=== PATIENT | male | born 1950 | race Caucasian/White ===

== ENCOUNTER → 2016-03-31 | Outpatient (CLI) | payer MEDICAID, OTHER ==
[~2016-03-31] MED LIST: AMIT24CA5 PO; ARIC10TA PO; ARTI99.0 OU; CLON-412 PO; FLOM5CAP PO; FOLI1TAB2 PO; GABA250S6 PO; METH10TA2 PO; NAME10TA PO; NEXI40CA PO; NORT50CA PO; OXYC-517 PO; SING10TA32 PO; ZOFR20TA PO
[2016-03-31 16:01] LABS: BASO % 0.5 % (0.0-1.0); EOS # 0.2 K/mm3 (0.0-0.50); EOS % 2.2 % (0.0-3.0); LARGE UNSTAINED CELL # 0.3 K/mm3 (0.0-0.4); LARGE UNSTAINED CELL % 3.7 % (0.0-4.0); LYMPH # 3.4 K/mm3 (1.5-4.5); MEAN CORPUSCULAR HEMOGLOBIN 32.4 pg (27.0-33.0); MEAN CORPUSCULAR HGB CONC 31.5 g/dl (32.0-36.5); MEAN CORPUSCULAR VOLUME 102.8 fl (80.0-96.0); MONO % 11.8 % (0.0-5.0); NEUTROPHILS # 3.5 K/mm3 (1.8-7.7); NEUTROPHILS % 41.7 % (36.0-66.0); PLATELET COUNT, AUTOMATED 190 k/mm3 (150-450); RED CELL DISTRIBUTION WIDTH 13.3 % (11.5-14.5); WHITE BLOOD COUNT 8.5 K/mm3 (4.0-10.0)
[2016-03-31 16:04] LABS: INR 1.23
[2016-03-31 16:08] LABS: ALBUMIN 3.7 GM/DL (3.2-5.2); ALBUMIN/GLOBULIN RATIO 0.88 (1.00-1.93); BILIRUBIN,TOTAL 0.8 MG/DL (0.2-1.0); CALCIUM LEVEL 9.5 MG/DL (8.8-10.2); CREATININE FOR GFR 1.6 MG/DL (0.70-1.30); GLOMERULAR FILTRATION RATE 46.4 (>49); PERCENT SATURATION 71.6 % (19.7-37.4); POTASSIUM SERUM 4.6 MEQ/L (3.5-5.1); TOTAL PROTEIN 7.9 GM/DL (6.4-8.2)
== END ==
LOC: M LAB 14:51
PROVIDERS: ATTEND Emergency Medicine
DX: D50.0 Iron deficiency anemia secondary to blood loss (chronic) (principal); N18.3 Chronic kidney disease, stage 3 (moderate); K70.30 Alcoholic cirrhosis of liver without ascites

== ENCOUNTER → 2016-05-31 | Outpatient (CLI) | payer OTHER ==
[2016-05-31 15:41] LABS: ALBUMIN 3.5 GM/DL (3.2-5.2); ALBUMIN/GLOBULIN RATIO 0.83 (1.00-1.93); BILIRUBIN,TOTAL 0.7 MG/DL (0.2-1.0); CALCIUM LEVEL 8.8 MG/DL (8.8-10.2); CREATININE FOR GFR 1.75 MG/DL (0.70-1.30); GLOMERULAR FILTRATION RATE 41.7 (>49); POTASSIUM SERUM 4.4 MEQ/L (3.5-5.1); TOTAL PROTEIN 7.7 GM/DL (6.4-8.2)
== END ==
LOC: M LAB 14:20
PROVIDERS: ATTEND Emergency Medicine
DX: N18.2 Chronic kidney disease, stage 2 (mild) (principal)

== ENCOUNTER → 2016-09-15 | Outpatient (CLI) | payer OTHER ==
[~2016-09-15] MED LIST changes: -AMIT24CA5 PO; +AMIT24CA7 PO; -ARIC10TA PO; +ARIC1TAB2 PO; -FOLI1TAB2 PO; +FOLI1TAB4 PO
== END ==
LOC: M LAB 11:30
PROVIDERS: ATTEND Internal Medicine Gastroenterology
DX: K70.30 Alcoholic cirrhosis of liver without ascites (principal)

== ENCOUNTER → 2016-09-15 | Outpatient (CLI) | payer OTHER ==
[2016-09-15 10:28] LABS: INR 1.12
[2016-09-15 10:39] LABS: BASO # 0.2 K/mm3 (0.0-0.2); BASO % 2.6 % (0.0-1.0); EOS # 0.4 K/mm3 (0.0-0.50); EOS % 4.8 % (0.0-3.0); LARGE UNSTAINED CELL # 0.1 K/mm3 (0.0-0.4); LARGE UNSTAINED CELL % 1.8 % (0.0-4.0); LYMPH # 2.5 K/mm3 (1.5-4.5); MEAN CORPUSCULAR HEMOGLOBIN 35.3 pg (27.0-33.0); MEAN CORPUSCULAR VOLUME 103.7 fl (80.0-96.0); MONO # 0.8 K/mm3 (0.0-0.8); MONO % 10.9 % (0.0-5.0); NEUTROPHILS # 3.4 K/mm3 (1.8-7.7); NEUTROPHILS % 45.9 % (36.0-66.0); PLATELET COUNT, AUTOMATED 192 k/mm3 (150-450); RED CELL DISTRIBUTION WIDTH 12.7 % (11.5-14.5); WHITE BLOOD COUNT 7.3 K/mm3 (4.0-10.0)
[2016-09-15 10:48] LABS: ALBUMIN 3.3 GM/DL (3.2-5.2); ALBUMIN/GLOBULIN RATIO 0.83 (1.00-1.93); BILIRUBIN,TOTAL 0.7 MG/DL (0.2-1.0); CALCIUM LEVEL 9.3 MG/DL (8.8-10.2); CREATININE FOR GFR 1.56 MG/DL (0.70-1.30); GLOMERULAR FILTRATION RATE 47.6 (>49); PERCENT SATURATION 37.5 % (19.7-37.4); POTASSIUM SERUM 4.5 MEQ/L (3.5-5.1); TOTAL PROTEIN 7.3 GM/DL (6.4-8.2)
== END ==
LOC: M LAB 09:35
PROVIDERS: ATTEND Emergency Medicine
DX: D50.0 Iron deficiency anemia secondary to blood loss (chronic) (principal); K70.30 Alcoholic cirrhosis of liver without ascites; N18.3 Chronic kidney disease, stage 3 (moderate); Z79.899 Other long term (current) drug therapy

== ENCOUNTER → 2016-09-20 | Outpatient (CLI) | payer OTHER ==
--- NOTE | 2016-09-21 03:35 | REP ---
Clinical: History of cirrhosis. Comparison: 12/11/2015. Technique: Castañeda scale ultrasound using curved array transducer. Findings: The liver and pancreas are normal in contour, size, and echogenicity without focal hepatic or pancreatic lesions identified. The gallbladder is normal without gallstones, wall thickening or pericholecystic fluid. No biliary ductal dilatation is appreciated, and the common bile duct is upper limits of normal and measures 8 mm diameter. The right kidney is normal in reniform shape without hydronephrosis and measures 8.9 x 4.0 x 3.7 cm. No ascites. Visualized portions of the abdominal aorta normal. Impression: Relatively normal appearance to the liver. No obvious right upper quadrant pathology by ultrasound. Signed by Duglas Harris MD 09/21/2016 03:27 A
== END ==
LOC: M RAD 08:55
PROVIDERS: ATTEND Internal Medicine Gastroenterology
DX: K70.30 Alcoholic cirrhosis of liver without ascites (principal)

== ENCOUNTER → 2017-02-07 | Outpatient (CLI) | payer OTHER ==
[~2017-02-07] MED LIST changes: +BIMA01SOL OU; +CORG20TA2 PO; +SPIR25TA2 PO; +XIFA550T PO
[2017-02-07 07:23] LABS: BASO # 0.1 10^3/uL (0.0-0.2); BASO % 0.9 % (0.0-1.0); EOS # 0.3 10^3/uL (0.0-0.50); EOS % 5.8 % (0.0-3.0); IMMATURE GRANULOCYTE % 0.3 % (0-0); LYMPH # 2.3 10^3/uL (1.5-4.5); LYMPH % 40.1 % (24.0-44.0); MEAN CORPUSCULAR HEMOGLOBIN 35.3 pg (27.0-33.0); MEAN CORPUSCULAR HGB CONC 34.1 g/dl (32.0-36.5); MEAN CORPUSCULAR VOLUME 103.4 fl (80.0-96.0); MONO # 0.8 10^3/uL (0.0-0.8); MONO % 12.9 % (0.0-5.0); NEUTROPHILS # 2.3 10^3/uL (1.8-7.7); PLATELET COUNT, AUTOMATED 123 10^3/uL (150-450); RED CELL DISTRIBUTION WIDTH 13.3 % (11.5-14.5); WHITE BLOOD COUNT 5.8 10^3/uL (4.0-10.0)
[2017-02-07 07:28] LABS: INR 1.17
[2017-02-07 07:48] LABS: ALBUMIN/GLOBULIN RATIO 0.65 (1.00-1.93); BILIRUBIN,TOTAL 1.1 MG/DL (0.2-1.0); CREATININE FOR GFR 1.29 MG/DL (0.70-1.30); GLOMERULAR FILTRATION RATE 59.3 (>49); PERCENT SATURATION 52.8 % (19.7-50.0); POTASSIUM SERUM 4.4 MEQ/L (3.5-5.1); TOTAL PROTEIN 7.6 GM/DL (6.4-8.2)
[2017-02-07 08:08] LABS: PLT CLUMPS? POS FLAG; POS COUNT POS FLAG
== END ==
LOC: M LAB 06:23
PROVIDERS: ATTEND Emergency Medicine
DX: D50.0 Iron deficiency anemia secondary to blood loss (chronic) (principal); K70.30 Alcoholic cirrhosis of liver without ascites; N18.3 Chronic kidney disease, stage 3 (moderate)

== ENCOUNTER 2017-02-08 17:30 | Emergency (ER) | payer OTHER ==
[~2017-02-08] VITALS: Ht 170.2 cm; Wt 79.5 kg
[~2017-02-08 17:30] MED LIST changes: -BIMA01SOL OU; -CORG20TA2 PO; -SPIR25TA2 PO; -XIFA550T PO
[2017-02-08] MEDS ORDERED: SPIR25TA2 PO (17:54)
[2017-02-08] MEDS ORDERED: XIFA550T PO (17:54)
[2017-02-08] MEDS ORDERED: BIMA01SOL OU (17:54)
[2017-02-08] MEDS ORDERED: CORG20TA2 PO (17:54)
[2017-02-08] MEDS: ACETAMINOPHEN 325 MG TAB PO ONE ×2 (18:15→18:46)
[2017-02-08 19:03] VITALS: BP 118/74
--- NOTE | 2017-02-08 19:20 | REPUSA ---
CT of the cervical spine Clinical history: Pain. Fall. Technique: Multiple axial CT images were obtained through the cervical spine without administration o f contrast. Coronal and sagittal 3-D reconstructed images were also obtained. Comparison: None. Findings: The cervical vertebral bodies are in satisfactory positioning and alignment. No fractures or dislocat ions are demonstrated. The odontoid process is intact. Intervertebral disc spaces are severely narrow ed at C5/C6 with a small disc osteophyte complex. There is moderate degenerative disc disease also no vincent at C6/C7 with small disc osteophyte complex. There is no evidence of facet subluxation. The neura l foramen appear grossly patent. The cervical cranial junction is intact. The cervical spinal canal d emonstrates normal caliber and contour without evidence of spinal stenosis. The surrounding soft tiss ues are within normal limits. Impression: 1. No acute fracture or traumatic injury. 2. Moderate to severe degenerative disc disease with disc osteophyte complexes at C5/C6 and C6/C7 as described.
--- NOTE | 2017-02-08 19:20 | REPUSA ---
CT of the head Clinical history: fall. Technique: Multiple axial CT images were obtained through the head without administration of contrast . Findings: The ventricles and sulci are symmetric bilaterally. There is no evidence of acute hemorrhag e or infarct. There is no midline shift, mass effect, or extra-axial fluid collection. The osseous st ructures are unremarkable. The visualized paranasal sinuses and mastoid air cells are clear. Impression: Negative study.
--- NOTE | 2017-02-09 21:14 | REP ---
RIGHT SHOULDER, COMPLETE: 02/08/2017. Clinical history: Trauma, patient fell. Shoulder pain. Comparison: AP chest 09/22/2015. Findings: AC joint shows no widening of the joint space or elevation of the clavicle. Minor degenerative changes. Clavicle without visible fracture. Glenohumeral joint shows some degenerative changes without subluxation or dislocation. No abnormal soft-tissue calcification. Scapula, humerus and ribs without visible or displaced fracture. Impression: 1. Some minor AC and glenohumeral joint degenerative change without visible or displaced fracture, avulsion, subluxation or focal bone lesion about the shoulder. No abnormal calcifications. Signed by Jaiden Ventura MD 02/11/2017 05:35 P
== END 2017-02-08 19:35 | disposition home or self-care (01) ==
LOC: M ED 17:30 → EDBD 17:30 → M ED 19:35
DX: S00.93XA Contusion of unspecified part of head, initial encounter (principal); S40.011A Contusion of right shoulder, initial encounter; W07.XXXA Fall from chair, initial encounter; Y92.009 Unspecified place in unspecified non-institutional (private) residence as the place of occurrence of the external cause; Y93.89 Activity, other specified; Y99.8 Other external cause status; Z91.041 Radiographic dye allergy status; Z88.2 Allergy status to sulfonamides

== ENCOUNTER → 2017-04-07 | Outpatient (CLI) | payer OTHER | LOC: M RAD 08:48 | DX: K74.60 Unspecified cirrhosis of liver (principal) | CPT/HCPCS: 76705 ==

== ENCOUNTER → 2017-04-19 | Outpatient (CLI) | payer OTHER ==
[2017-04-19 12:15] LABS: FOLATE 4.3 NG/ML; VITAMIN B12 LEVEL 789 PG/ML
== END ==
LOC: M LAB 11:09
DX: D51.9 Vitamin B12 deficiency anemia, unspecified (principal)
CPT/HCPCS: 82746

== ENCOUNTER → 2017-06-14 | Outpatient (CLI) | payer OTHER ==
[2017-06-14 15:24] LABS: HEMATOCRIT 30.2 % (42.0-52.0); MEAN CORPUSCULAR VOLUME 97.7 fl (80.0-96.0); RED BLOOD COUNT 3.09 10^6/uL (4.30-6.10); WHITE BLOOD COUNT 8.1 10^3/uL (4.0-10.0)
[2017-06-14 15:25] LABS: BASO # 0.1 10^3/uL (0.0-0.2); BASO % 0.7 % (0.0-1.0); EOS # 0.1 10^3/uL (0.0-0.50); EOS % 1.6 % (0.0-3.0); IMMATURE GRANULOCYTE % 0.1 % (0-3.0); LYMPH # 2.3 10^3/uL (1.5-4.5); LYMPH % 28.5 % (24.0-44.0); MEAN CORPUSCULAR HEMOGLOBIN 35.6 pg (27.0-33.0); MEAN CORPUSCULAR HGB CONC 36.4 g/dl (32.0-36.5); MONO # 1.2 10^3/uL (0.0-0.8); MONO % 14.4 % (0.0-5.0); NEUTROPHILS # 4.4 10^3/uL (1.8-7.7); NEUTROPHILS % 54.7 % (36.0-66.0); PLATELET COUNT, AUTOMATED 150 10^3/uL (150-450); RED CELL DISTRIBUTION WIDTH 16.2 % (11.5-14.5)
[2017-06-14 15:34] LABS: INR 1.43; PROTHROMBIN TIME 17.8 SECONDS (12.4-14.5)
[2017-06-14 15:35] LABS: PARTIAL THROMBOPLASTIN TIME 37.8 SECONDS (26.8-37.9)
[2017-06-14 16:03] LABS: ALPHA FETOPROTEIN TUMOR QUANT 5.5 NG/ML (<8.1)
[2017-06-14 16:09] LABS: ALBUMIN 3.1 GM/DL (3.2-5.2); ALBUMIN/GLOBULIN RATIO 0.65 (1.00-1.93); ALKALINE PHOSPHATASE 121 U/L (45-117); ALT/SGPT 103 U/L (12-78); ANION GAP 7 MEQ/L (8-16); AST/SGOT 304 U/L (7-37); BILIRUBIN,TOTAL 2.1 MG/DL (0.2-1.0); BLOOD UREA NITROGEN 18 MG/DL (7-18); CARBON DIOXIDE LEVEL 28 MEQ/L (21-32); CHLORIDE LEVEL 103 MEQ/L (98-107); CHOLESTEROL LEVEL 125 MG/DL (<200); CHOLESTEROL RISK RATIO 7.812 (<5); CREATININE FOR GFR 1.51 MG/DL (0.70-1.30); GLOMERULAR FILTRATION RATE 49.3 (>49); GLUCOSE, FASTING 112 MG/DL (70-100); HDL CHOLESTEROL 16 MG/DL (>40); IRON (FE) 133 UG/DL (65-175); NON-HDL-C 109 MG/DL; PERCENT SATURATION 73.1 % (19.7-50.0); POTASSIUM SERUM 4.5 MEQ/L (3.5-5.1); SODIUM LEVEL 138 MEQ/L (136-145); TOTAL IRON BINDING CAPACITY 182 UG/DL (250-450); TOTAL PROTEIN 7.9 GM/DL (6.4-8.2); TRIGLYCERIDES LEVEL 140 MG/DL (<150)
== END ==
LOC: M LAB 14:48
DX: N18.3 Chronic kidney disease, stage 3 (moderate) (principal); D50.0 Iron deficiency anemia secondary to blood loss (chronic); K70.30 Alcoholic cirrhosis of liver without ascites; Z79.899 Other long term (current) drug therapy
CPT/HCPCS: 83550

== ENCOUNTER → 2017-06-29 | Outpatient (CLI) | payer OTHER ==
[2017-06-29 16:07] LABS: BASO # 0.1 10^3/uL (0.0-0.2); BASO % 0.9 % (0.0-1.0); EOS # 0.2 10^3/uL (0.0-0.50); HEMATOCRIT 34.4 % (42.0-52.0); HEMOGLOBIN 12.4 g/dl (13.5-17.5); IMMATURE GRANULOCYTE % 0.1 % (0-3.0); LYMPH # 3.1 10^3/uL (1.5-4.5); MEAN CORPUSCULAR HEMOGLOBIN 35.9 pg (27.0-33.0); MEAN CORPUSCULAR VOLUME 99.7 fl (80.0-96.0); MONO # 1.1 10^3/uL (0.0-0.8); MONO % 14.3 % (0.0-5.0); NEUTROPHILS # 3.1 10^3/uL (1.8-7.7); NEUTROPHILS % 41.7 % (36.0-66.0); PLATELET COUNT, AUTOMATED 198 10^3/uL (150-450); RED BLOOD COUNT 3.45 10^6/uL (4.30-6.10); RED CELL DISTRIBUTION WIDTH 16.7 % (11.5-14.5); WHITE BLOOD COUNT 7.5 10^3/uL (4.0-10.0)
[2017-06-29 16:24] LABS: INR 1.39; PROTHROMBIN TIME 17.4 SECONDS (12.4-14.5)
[2017-06-29 16:25] LABS: PARTIAL THROMBOPLASTIN TIME 37.9 SECONDS (26.8-37.9)
== END ==
LOC: M LAB 15:39
DX: K70.30 Alcoholic cirrhosis of liver without ascites (principal)
CPT/HCPCS: 85610

== ENCOUNTER 2017-07-15 12:16 | Day surgery (SDC) | payer OTHER ==
[2017-07-15] MEDS: NS 1,000 ML IV (12:30)
[2017-07-15] MEDS ORDERED: LIDOCAINE 2% INJ 100 MG/5 ML SDV (FOR ANES.) As Ordered (14:01)
[2017-07-15] MEDS ORDERED: PROPOFOL 200 MG/20 ML VIAL As Ordered (14:01)
== END 2017-07-15 15:02 | disposition home or self-care (01) ==
LOC: M OPP 12:16
DX: R13.10 Dysphagia, unspecified (principal); K22.2 Esophageal obstruction; K74.60 Unspecified cirrhosis of liver; D64.9 Anemia, unspecified; R00.2 Palpitations; K21.9 Gastro-esophageal reflux disease without esophagitis; M19.90 Unspecified osteoarthritis, unspecified site; M25.50 Pain in unspecified joint; M54.30 Sciatica, unspecified side; F03.90 Unspecified dementia, unspecified severity, without behavioral disturbance, psychotic disturbance, mood disturbance, and anxiety; R21 Rash and other nonspecific skin eruption; F10.21 Alcohol dependence, in remission; Z91.041 Radiographic dye allergy status; Z88.2 Allergy status to sulfonamides; Z79.899 Other long term (current) drug therapy; Z80.1 Family history of malignant neoplasm of trachea, bronchus and lung
CPT/HCPCS: 43220

== ENCOUNTER → 2017-08-02 | Day surgery (SDC) | payer OTHER ==
[~2017-08-02] MED LIST changes: -AMIT24CA7 PO; -ARIC1TAB2 PO; -ARTI99.0 OU; -CLON-412 PO; -FLOM5CAP PO; -FOLI1TAB4 PO; -GABA250S6 PO; +LIDOCAINE 2% INJ 100 MG/5 ML SDV (FOR ANES.) As Ordered; -METH10TA2 PO; -NAME10TA PO; -NEXI40CA PO; -NORT50CA PO; -OXYC-517 PO; +PROPOFOL 200 MG/20 ML VIAL As Ordered; -SING10TA32 PO; -ZOFR20TA PO
[2017-08-02 12:33] LABS: HEMATOCRIT 31.9 % (42.0-52.0); HEMOGLOBIN 11.4 g/dl (13.5-17.5); MEAN CORPUSCULAR HEMOGLOBIN 35.5 pg (27.0-33.0); MEAN CORPUSCULAR HGB CONC 35.7 g/dl (32.0-36.5); MEAN CORPUSCULAR VOLUME 99.4 fl (80.0-96.0); RED BLOOD COUNT 3.21 10^6/uL (4.30-6.10); RED CELL DISTRIBUTION WIDTH 15.3 % (11.5-14.5); WHITE BLOOD COUNT 5.9 10^3/uL (4.0-10.0)
[2017-08-02 12:50] LABS: INR 1.51; PROTHROMBIN TIME 18.6 SECONDS (12.4-14.5)
[2017-08-02 12:59] LABS: PLATELET COUNT, AUTOMATED 96 10^3/uL (150-450)
[2017-08-02] MEDS: NS 1,000 ML IV (13:53)
== END | disposition home or self-care (01) ==
LOC: M OPP 12:02
DX: K22.2 Esophageal obstruction (principal); I86.4 Gastric varices; R13.10 Dysphagia, unspecified; K21.9 Gastro-esophageal reflux disease without esophagitis; M12.9 Arthropathy, unspecified; M54.30 Sciatica, unspecified side; D64.9 Anemia, unspecified; F03.90 Unspecified dementia, unspecified severity, without behavioral disturbance, psychotic disturbance, mood disturbance, and anxiety; K74.60 Unspecified cirrhosis of liver; Z79.891 Long term (current) use of opiate analgesic; Z79.899 Other long term (current) drug therapy; Z88.8 Allergy status to other drugs, medicaments and biological substances; Z91.041 Radiographic dye allergy status; Z86.59 Personal history of other mental and behavioral disorders; Z80.1 Family history of malignant neoplasm of trachea, bronchus and lung
CPT/HCPCS: 43249

== ENCOUNTER → 2017-09-16 | Outpatient (CLI) | payer OTHER ==
[2017-09-16 09:41] LABS: BASO # 0.1 10^3/uL (0.0-0.2); BASO % 0.9 % (0.0-1.0); EOS # 0.3 10^3/uL (0.0-0.50); HEMATOCRIT 32.4 % (42.0-52.0); HEMOGLOBIN 11.9 g/dl (13.5-17.5); IMMATURE GRANULOCYTE % 0.4 % (0-3.0); LYMPH # 3.3 10^3/uL (1.5-4.5); MEAN CORPUSCULAR HEMOGLOBIN 36.2 pg (27.0-33.0); MEAN CORPUSCULAR VOLUME 98.5 fl (80.0-96.0); MONO # 0.8 10^3/uL (0.0-0.8); MONO % 10.4 % (0.0-5.0); NEUTROPHILS % 40.3 % (36.0-66.0); PLATELET COUNT, AUTOMATED 118 10^3/uL (150-450); RED BLOOD COUNT 3.29 10^6/uL (4.30-6.10); RED CELL DISTRIBUTION WIDTH 16.4 % (11.5-14.5); WHITE BLOOD COUNT 7.5 10^3/uL (4.0-10.0)
[2017-09-16 09:45] LABS: MEAN CORPUSCULAR HGB CONC 36.7 g/dl (32.0-36.5)
[2017-09-16 09:51] LABS: INR 1.49; PROTHROMBIN TIME 18.2 SECONDS (12.1-14.4)
[2017-09-16 09:52] LABS: PARTIAL THROMBOPLASTIN TIME 36.5 SECONDS (25.4-37.6)
[2017-09-16 10:02] LABS: ALBUMIN 2.7 GM/DL (3.2-5.2); ALBUMIN/GLOBULIN RATIO 0.52 (1.00-1.93); ALKALINE PHOSPHATASE 89 U/L (45-117); ALT/SGPT 49 U/L (12-78); ANION GAP 8 MEQ/L (8-16); AST/SGOT 115 U/L (7-37); BILIRUBIN,TOTAL 2.3 MG/DL (0.2-1.0); BLOOD UREA NITROGEN 13 MG/DL (7-18); CALCIUM LEVEL 8.4 MG/DL (8.8-10.2); CARBON DIOXIDE LEVEL 28 MEQ/L (21-32); CHLORIDE LEVEL 107 MEQ/L (98-107); CHOLESTEROL LEVEL 124 MG/DL (<200); CHOLESTEROL RISK RATIO 6.526 (<5); CREATININE FOR GFR 1.56 MG/DL (0.70-1.30); GLOMERULAR FILTRATION RATE 47.5 (>49); GLUCOSE, FASTING 107 MG/DL (70-100); HDL CHOLESTEROL 19 MG/DL (>40); IRON (FE) 129 UG/DL (65-175); LDL CHOLESTEROL 77.8 MG/DL (<100); NON-HDL-C 105 MG/DL; PERCENT SATURATION 67.9 % (19.7-50.0); POTASSIUM SERUM 4.2 MEQ/L (3.5-5.1); SODIUM LEVEL 143 MEQ/L (136-145); TOTAL IRON BINDING CAPACITY 190 UG/DL (250-450); TOTAL PROTEIN 7.9 GM/DL (6.4-8.2); TRIGLYCERIDES LEVEL 136 MG/DL (<150)
[2017-09-16 10:10] LABS: ALPHA FETOPROTEIN TUMOR QUANT 5.7 NG/ML (<8.1)
== END ==
LOC: M LAB 09:09
DX: D50.0 Iron deficiency anemia secondary to blood loss (chronic) (principal); Z79.899 Other long term (current) drug therapy; N18.3 Chronic kidney disease, stage 3 (moderate); K70.30 Alcoholic cirrhosis of liver without ascites
CPT/HCPCS: 83550

== ENCOUNTER → 2017-09-28 | Outpatient (CLI) | payer OTHER ==
[2017-09-28 14:57] LABS: INR 1.44; PROTHROMBIN TIME 17.8 SECONDS (12.1-14.4)
[2017-09-28 15:09] LABS: ALBUMIN 2.7 GM/DL (3.2-5.2); ALBUMIN/GLOBULIN RATIO 0.55 (1.00-1.93); ALKALINE PHOSPHATASE 89 U/L (45-117); ALT/SGPT 61 U/L (12-78); AST/SGOT 164 U/L (7-37); BILIRUBIN,DIRECT 1.1 MG/DL (0.0-0.2); BILIRUBIN,TOTAL 2.1 MG/DL (0.2-1.0); GAMMA GLUTAMYLTRANSPEPTIDASE 364 U/L (15-85); TOTAL PROTEIN 7.6 GM/DL (6.4-8.2)
[2017-09-30 10:02] LABS: ALPHA FETOPROTEIN TUMOR QUANT 6.7 NG/ML (<8.1)
== END ==
LOC: M LAB 14:08
DX: K70.30 Alcoholic cirrhosis of liver without ascites (principal)
CPT/HCPCS: 82977

== ENCOUNTER → 2017-10-07 | Outpatient (CLI) | payer OTHER | LOC: M RAD 10:00 | DX: K70.30 Alcoholic cirrhosis of liver without ascites (principal) | CPT/HCPCS: 76705 ==

== ENCOUNTER → 2017-10-31 | Outpatient (CLI) | payer OTHER | LOC: M RAD 08:38 | DX: K86.89 Other specified diseases of pancreas (principal); R93.3 Abnormal findings on diagnostic imaging of other parts of digestive tract | CPT/HCPCS: 74181 ==

== ENCOUNTER 2017-12-31 22:56 | Emergency (ER) | payer OTHER ==
[2017-12-31 23:43] LABS: BASO # 0.1 10^3/uL (0.0-0.2); BASO % 0.6 % (0.0-1.0); EOS % 0.5 % (0.0-3.0); HEMATOCRIT 25.3 % (42.0-52.0); IMMATURE GRANULOCYTE % 0.3 % (0-3.0); LYMPH # 2.7 10^3/uL (1.5-4.5); LYMPH % 35.3 % (24.0-44.0); MEAN CORPUSCULAR HEMOGLOBIN 35.3 pg (27.0-33.0); MEAN CORPUSCULAR HGB CONC 35.6 g/dl (32.0-36.5); MEAN CORPUSCULAR VOLUME 99.2 fl (80.0-96.0); MONO # 0.7 10^3/uL (0.0-0.8); MONO % 9.4 % (0.0-5.0); NEUTROPHILS # 4.2 10^3/uL (1.8-7.7); NEUTROPHILS % 53.9 % (36.0-66.0); PLATELET COUNT, AUTOMATED 111 10^3/uL (150-450); RED BLOOD COUNT 2.55 10^6/uL (4.30-6.10); RED CELL DISTRIBUTION WIDTH 16.1 % (11.5-14.5); WHITE BLOOD COUNT 7.8 10^3/uL (4.0-10.0)
[2017-12-31] MEDS: PANTOPRAZOLE 40MG INJ (PROTONIX) (C9113) IV (23:47)
[2017-12-31] MEDS: NS 1,000 ML IV (23:47)
[2017-12-31 23:57] LABS: INR 1.69; PROTHROMBIN TIME 20.1 SECONDS (12.1-14.4)
[2018-01-01 00:08] LABS: ALBUMIN 2.4 GM/DL (3.2-5.2); ALBUMIN/GLOBULIN RATIO 0.56 (1.00-1.93); ALKALINE PHOSPHATASE 79 U/L (45-117); ALT/SGPT 66 U/L (12-78); ANION GAP 13 MEQ/L (8-16); AST/SGOT 142 U/L (7-37); BILIRUBIN,DIRECT 1.1 MG/DL (0.0-0.2); BILIRUBIN,TOTAL 1.8 MG/DL (0.2-1.0); BLOOD UREA NITROGEN 8 MG/DL (7-18); CALCIUM LEVEL 8.1 MG/DL (8.8-10.2); CARBON DIOXIDE LEVEL 23 MEQ/L (21-32); CHLORIDE LEVEL 104 MEQ/L (98-107); CREATININE FOR GFR 1.45 MG/DL (0.70-1.30); GLOMERULAR FILTRATION RATE 51.7 (>49); GLUCOSE, FASTING 107 MG/DL (70-100); LIPASE 1023 U/L (73-393); POTASSIUM SERUM 4.2 MEQ/L (3.5-5.1); SODIUM LEVEL 140 MEQ/L (136-145); TOTAL PROTEIN 6.7 GM/DL (6.4-8.2)
[2018-01-01] MEDS: NS 1,910 ML in APPROPRIATE DILUENT 1 EA IV (00:28)
[2018-01-01 00:45] LABS: ETHYL ALCOHOL (ETHANOL) 0.229 % (0.000-0.010)
[2018-01-01 00:57] LABS: AMMONIA 22 uMOL/L (<32)
[2018-01-01] MEDS: ONDANSETRON 4MG/2ML VIAL (J2405) IV (03:13)
== END 2018-01-01 04:06 | disposition short-term general hospital (02) ==
LOC: M ED 22:56
DX: K92.1 Melena (principal); I48.91 Unspecified atrial fibrillation; R55 Syncope and collapse
CPT/HCPCS: C9113

== ENCOUNTER → 2018-02-06 | Outpatient (CLI) | payer OTHER ==
[~2018-02-06] MED LIST changes: +AMIT24CA7 PO; +ARIC1TAB2 PO; +ARTI99.0 OU; +BIMA01SOL OU; +CLON-412 PO; +CORG20TA2 PO; +FLOM0.4C39 PO; +FOLI1TAB5 PO; +GABA250S6 PO; -LIDOCAINE 2% INJ 100 MG/5 ML SDV (FOR ANES.) As Ordered; +METH10TA2 PO; +NAME10TA PO; +NEXI40CA PO; +NORT50CA PO; +OXYC-517 PO; -PROPOFOL 200 MG/20 ML VIAL As Ordered; +SING10TA32 PO; +SPIR-10 PO; +SPIR50TA4 PO; +XIFA550T PO; +ZOFR4TAB16 PO
[2018-02-06 10:00] LABS: BASO # 0.1 10^3/uL (0.0-0.2); BASO % 0.7 % (0.0-1.0); EOS # 0.3 10^3/uL (0.0-0.50); EOS % 3.7 % (0.0-3.0); HEMATOCRIT 30.1 % (42.0-52.0); HEMOGLOBIN 10.9 g/dl (13.5-17.5); LYMPH # 2.7 10^3/uL (1.5-4.5); LYMPH % 39.4 % (24.0-44.0); MEAN CORPUSCULAR HEMOGLOBIN 34.2 pg (27.0-33.0); MEAN CORPUSCULAR HGB CONC 36.2 g/dl (32.0-36.5); MEAN CORPUSCULAR VOLUME 94.4 fl (80.0-96.0); MONO # 1.2 10^3/uL (0.0-0.8); MONO % 17.3 % (0.0-5.0); NEUTROPHILS # 2.6 10^3/uL (1.8-7.7); NEUTROPHILS % 38.8 % (36.0-66.0); PLATELET COUNT, AUTOMATED 159 10^3/uL (150-450); RED BLOOD COUNT 3.19 10^6/uL (4.30-6.10); WHITE BLOOD COUNT 6.8 10^3/uL (4.0-10.0)
[2018-02-06 11:22] LABS: ALBUMIN 2.5 GM/DL (3.2-5.2); BILIRUBIN,TOTAL 1.6 MG/DL (0.2-1.0); CALCIUM LEVEL 8.7 MG/DL (8.8-10.2); CREATININE FOR GFR 1.64 MG/DL (0.70-1.30); FOLATE 8.6 NG/ML; GLOMERULAR FILTRATION RATE 44.8 (>49); PERCENT SATURATION 56.9 % (19.7-50.0); POTASSIUM SERUM 4.9 MEQ/L (3.5-5.1); TOTAL PROTEIN 7.2 GM/DL (6.4-8.2)
== END ==
LOC: M LAB 09:04
PROVIDERS: ATTEND Physician Assistant
DX: I12.9 Hypertensive chronic kidney disease with stage 1 through stage 4 chronic kidney disease, or unspecified chronic kidney disease (principal); N18.3 Chronic kidney disease, stage 3 (moderate); K70.30 Alcoholic cirrhosis of liver without ascites; D50.0 Iron deficiency anemia secondary to blood loss (chronic)

== ENCOUNTER → 2018-03-15 | Outpatient (CLI) | payer MEDICARE, OTHER ==
[~2018-03-15] MED LIST changes: +FOLI1TAB11 PO; -FOLI1TAB5 PO
[2018-03-15 13:14] LABS: BASO # 0.1 10^3/uL (0.0-0.2); BASO % 1.1 % (0.0-1.0); EOS # 0.2 10^3/uL (0.0-0.50); EOS % 3.8 % (0.0-3.0); HEMOGLOBIN 11.4 g/dl (13.5-17.5); LYMPH # 2.5 10^3/uL (1.5-4.5); LYMPH % 46.1 % (24.0-44.0); MEAN CORPUSCULAR HEMOGLOBIN 33.7 pg (27.0-33.0); MEAN CORPUSCULAR HGB CONC 34.5 g/dl (32.0-36.5); MEAN CORPUSCULAR VOLUME 97.6 fl (80.0-96.0); MONO # 1.2 10^3/uL (0.0-0.8); MONO % 21.1 % (0.0-5.0); NEUTROPHILS # 1.5 10^3/uL (1.8-7.7); NEUTROPHILS % 27.7 % (36.0-66.0); PLATELET COUNT, AUTOMATED 165 10^3/uL (150-450); RED BLOOD COUNT 3.38 10^6/uL (4.30-6.10); WHITE BLOOD COUNT 5.5 10^3/uL (4.0-10.0)
[2018-03-15 13:49] LABS: ALBUMIN 2.8 GM/DL (3.2-5.2); BILIRUBIN,TOTAL 1.1 MG/DL (0.2-1.0); CALCIUM LEVEL 8.9 MG/DL (8.8-10.2); CREATININE FOR GFR 1.75 MG/DL (0.70-1.30); GLOMERULAR FILTRATION RATE 41.6 (>49); PERCENT SATURATION 23.2 % (19.7-50.0); TOTAL PROTEIN 7.6 GM/DL (6.4-8.2)
[2018-03-15 14:41] LABS: FOLATE 8.7 NG/ML (>5.4)
== END ==
LOC: M LAB 12:33
PROVIDERS: ATTEND Physician Assistant
DX: N18.3 Chronic kidney disease, stage 3 (moderate) (principal)

== ENCOUNTER → 2018-04-04 | Outpatient (CLI) | payer MEDICARE ==
[2018-04-04 15:49] LABS: BASO # 0.1 10^3/uL (0.0-0.2); BASO % 0.7 % (0.0-1.0); EOS # 0.2 10^3/uL (0.0-0.50); EOS % 3.6 % (0.0-3.0); HEMATOCRIT 31.8 % (42.0-52.0); HEMOGLOBIN 10.8 g/dl (13.5-17.5); LYMPH # 3.3 10^3/uL (1.5-4.5); LYMPH % 49.1 % (24.0-44.0); MEAN CORPUSCULAR HEMOGLOBIN 33.1 pg (27.0-33.0); MEAN CORPUSCULAR VOLUME 97.5 fl (80.0-96.0); MONO # 1.1 10^3/uL (0.0-0.8); MONO % 16.6 % (0.0-5.0); NEUTROPHILS % 29.9 % (36.0-66.0); PLATELET COUNT, AUTOMATED 128 10^3/uL (150-450); RED BLOOD COUNT 3.26 10^6/uL (4.30-6.10); WHITE BLOOD COUNT 6.7 10^3/uL (4.0-10.0)
[2018-04-04 16:13] LABS: ALBUMIN 2.8 GM/DL (3.2-5.2); BILIRUBIN,DIRECT 0.5 MG/DL (0.0-0.2); BILIRUBIN,TOTAL 0.9 MG/DL (0.2-1.0); CREATININE FOR GFR 1.72 MG/DL (0.70-1.30); GLOMERULAR FILTRATION RATE 42.4 (>49); TOTAL PROTEIN 7.1 GM/DL (6.4-8.2)
[2018-04-04 16:15] LABS: INR 1.37; PROTHROMBIN TIME 17.1 SECONDS (12.1-14.4)
[2018-04-04 16:45] LABS: CA19-9 TUMOR MARKER,CARBOHYDRA 55.2 U/ML (<35.0)
== END ==
LOC: M LAB 15:12
PROVIDERS: ATTEND Internal Medicine Gastroenterology
DX: K70.30 Alcoholic cirrhosis of liver without ascites (principal)

== ENCOUNTER → 2018-04-12 | Outpatient (CLI) | payer MEDICARE ==
--- NOTE | 2018-04-17 12:37 | REP ---
Clinical: Urinary frequency. Technique: Real time welch scale ultrasound examination using curved array transducer. Findings: The kidneys appear mildly atrophic but otherwise normal in reniform shape and echogenicity without hydronephrosis, nephrolithiasis, cystic or renal mass lesion. No perinephric fluid collection. Right kidney measures 8.6 x 4.7 x 4.0 cm. Left kidney measures 7.1 x 4.4 x 3.4 cm. Bladder is grossly unremarkable and bilateral ureteral jets are identified. Prevoid bladder measures 8.4 x 7.3 x 4.8 cm (192 ml). Postvoid bladder measures 1.9 x 2.1 x 1.9 cm (5 ml). Postvoid residual equals 3%. Prostate gland is heterogeneous and measures 4.5 x 2.3 x 3.0 cm (16 ml). Impression: 1. Atrophic appearance of the kidneys otherwise unremarkable. Electronically Signed by Duglas Harris MD 04/17/2018 12:29 P
== END ==
LOC: M RAD 12:29
PROVIDERS: ATTEND Internal Medicine Nephrology
DX: N18.3 Chronic kidney disease, stage 3 (moderate) (principal); R35.0 Frequency of micturition; N26.1 Atrophy of kidney (terminal)

== ENCOUNTER → 2018-04-21 | Outpatient (CLI) | payer MEDICARE ==
--- NOTE | 2018-04-21 14:45 | REP ---
MRI ABDOMEN AND PANCREAS WITHOUT INTRAVENOUS CONTRAST: HISTORY: Pancreatic lesion. Elevated CA19-9. Comparison is made with noncontrast CT study December 31, 2017 as well as ultrasound October 07, 2017 and prior MRI study October 31, 2017. MRI TECHNIQUE: Noncontrast study is performed as requested. Axial and coronal T1- and T2-weighted sequences include spin echo, gradient echo, in- and [id number] sequences. MRI FINDINGS: There is motion artifact on several of the sequences. Visualization is somewhat less than optimal. Multiple low signal intensity foci are again seen in the pancreatic head consistent with calcifications noted distributed in the pancreas on CT study. These calcifications are better visualized on CT than MRI. No pancreatic mass lesion is appreciated. Pancreatic duct is somewhat dilated measuring 5-6 mm in diameter today. This has increased from the prior MRI study. The intrahepatic bile ducts are not dilated. The common bile duct measures 0.7 cm, which is the upper range of normal. No mass or stone is seen in the common duct. No filling defect is noted in the gallbladder. There is a small quantity of fluid anteriorly adjacent to the liver less so than previously. No focal hepatic or splenic lesion is appreciated. There is mild diffuse fatty infiltration. IMPRESSION: Multifocal pancreatic calcifications consistent with chronic pancreatitis changes. Interval development of moderate pancreatic ductal dilation in the body and tail of the pancreas. No pancreatic mass lesion is visible on this noncontrast study. Fatty infiltration of the liver is again noted. Normal perihepatic fluid. Electronically Signed by Robert Vance MD 04/21/2018 03:52 P
== END ==
LOC: M RAD 10:27
PROVIDERS: ATTEND Internal Medicine Gastroenterology
DX: C25.3 Malignant neoplasm of pancreatic duct (principal); K86.9 Disease of pancreas, unspecified; K76.0 Fatty (change of) liver, not elsewhere classified

== ENCOUNTER → 2018-05-09 | Outpatient (CLI) | payer MEDICARE, MEDICAID ==
[2018-05-09 16:05] LABS: ALBUMIN 3.4 GM/DL (3.2-5.2); BILIRUBIN,DIRECT 0.5 MG/DL (0.0-0.2); BILIRUBIN,TOTAL 1.2 MG/DL (0.2-1.0); TOTAL PROTEIN 8.2 GM/DL (6.4-8.2)
[2018-05-09 16:42] LABS: CA19-9 TUMOR MARKER,CARBOHYDRA 58.4 U/ML (<35.0)
== END ==
LOC: M LAB 14:21
PROVIDERS: ATTEND Internal Medicine Gastroenterology
DX: K70.30 Alcoholic cirrhosis of liver without ascites (principal)

== ENCOUNTER → 2018-07-26 | Outpatient (CLI) | payer MEDICARE, MEDICAID ==
--- NOTE | 2018-07-26 17:33 | REP ---
RENAL NUCLEAR SCAN WITH FLOW AND FUNCTION: Following the intravenous administration of 8.6 millicuries of Technetium 99M mag 3, immediate flow images are obtained. In the posterior projection showing symmetrical blood flow bilaterally. Delayed renal function images are performed in the posterior projection every minute for a period of 30 minutes. There is no definite cortical defect bilaterally. There is a fairly symmetrical excretion and cortical washout. There is mild bilateral pelvocaliectasis without over hydronephrosis. Split function is 42.1% on the left and 57.9% on the right. Time to peak is 3 minutes bilaterally. T-one half is mildly elevated bilaterally, 18.9 minutes on the left and 25.1 minutes on the right. Renal function curves are moderately shallow in their downward slopes. There is mild postvoid residual in the urinary bladder after voiding. IMPRESSION: Mildly to moderately compromised renal function bilaterally with a greater degree of splint function on the right compared to the left. No evidence of urinary tract obstruction. Electronically Signed by Mannie Castañeda MD 07/31/2018 08:25 A
== END ==
LOC: M RAD 13:21
PROVIDERS: ATTEND Internal Medicine Nephrology
DX: N27.1 Small kidney, bilateral (principal); N18.3 Chronic kidney disease, stage 3 (moderate)
CPT/HCPCS: 78707; A9562

== ENCOUNTER → 2018-08-15 | Outpatient (CLI) | payer MEDICARE, MEDICAID ==
[2018-08-15 08:50] LABS: BASO # 0.1 10^3/uL (0.0-0.2); BASO % 1.1 % (0.0-1.0); EOS # 0.3 10^3/uL (0.0-0.50); HEMATOCRIT 33.9 % (42.0-52.0); HEMOGLOBIN 12.1 g/dl (13.5-17.5); LYMPH % 56.6 % (24.0-44.0); MEAN CORPUSCULAR HGB CONC 35.7 g/dl (32.0-36.5); MEAN CORPUSCULAR VOLUME 95.2 fl (80.0-96.0); MONO # 0.7 10^3/uL (0.0-0.8); NEUTROPHILS # 1.2 10^3/uL (1.8-7.7); NEUTROPHILS % 23.1 % (36.0-66.0); PLATELET COUNT, AUTOMATED 113 10^3/uL (150-450); RED BLOOD COUNT 3.56 10^6/uL (4.30-6.10); WHITE BLOOD COUNT 5.4 10^3/uL (4.0-10.0)
[2018-08-15 09:11] LABS: INR 1.27; PROTHROMBIN TIME 15.6 SECONDS (11.8-14.0)
[2018-08-15 09:13] LABS: ALBUMIN 3.1 GM/DL (3.2-5.2); BILIRUBIN,DIRECT 0.5 MG/DL (0.0-0.2); CALCIUM LEVEL 8.6 MG/DL (8.8-10.2); CREATININE FOR GFR 1.66 MG/DL (0.70-1.30); GLOMERULAR FILTRATION RATE 44.1 (>49); POTASSIUM SERUM 4.1 MEQ/L (3.5-5.1); TOTAL PROTEIN 7.6 GM/DL (6.4-8.2)
[2018-08-15 09:50] LABS: CA19-9 TUMOR MARKER,CARBOHYDRA 55.3 U/ML (<35.0)
--- NOTE | 2018-08-15 10:08 | REP ---
Clinical: History of alcoholic cirrhosis. Technique: Real time welch scale ultrasound examination using curved array transducer. Findings: The liver demonstrates mildly coarsened echotexture without focal hepatic lesion identified suggesting hepatocellular disease. Evaluation the pancreas demonstrates parenchymal and possibly intraductal calcifications along with ductal dilatation to 4.9 mm, and findings may reflect chronic pancreatitis. No focal pancreatic lesion is otherwise identified. Gallbladder demonstrates small mobile gallstones without wall thickening or pericholecystic fluid. No sonographic Vidales's sign. Common bile duct is dilated to 8.6 mm and small choledocholiths cannot be excluded. The right kidney is normal in reniform shape without hydronephrosis and measures 9.7 x 4.2 x 3.5 cm. No ascites in the visualized right upper quadrant. Impression: 1. Liver demonstrates changes related to hepatocellular disease without focal hepatic lesion. 2. Cholelithiasis and possible choledocholithiasis along with moderately dilated common bile duct 8.6 mm. 3. Pancreatic ductal dilatation along with pancreatic calcifications raising the possibility of prior chronic pancreatitis. Electronically Signed by Duglas Harris MD 08/15/2018 10:01 A
== END ==
LOC: M RAD 08:05
PROVIDERS: ATTEND Internal Medicine Gastroenterology
DX: K70.30 Alcoholic cirrhosis of liver without ascites (principal)

== ENCOUNTER → 2018-09-25 | Outpatient (CLI) | payer MEDICARE, MEDICAID ==
--- NOTE | 2018-09-25 11:38 | REP ---
MRCP: MRCP is accomplished utilizing multiple heavy T2-weighted sequences in the axial and coronal planes. MIP reconstruction images are performed. Comparison is made with prior MRI 04/21/2018 and 10/31/2017. There is slight progressive dilatation of the biliary system. There is mild intrahepatic biliary dilatation. The common hepatic duct is dilated up to 12 mm and the common bile duct is dilated up to 10 mm. There is no evidence of choledocholithiasis and no definite structure is seen, although a stricture at the ampulla of Vater cannot be totally be excluded. There is dilatation of the pancreatic duct diffusely, with a maximum diameter of 5-6 mm in the body and tail of the pancreas. Multiple pancreatic calcifications are again noted. A small intraductal calcification is seen in the body of the pancreas measuring about 4 mm in diameter. Multiple pancreatic head calcifications are seen. There is mild dilatation of multiple ductal side branches. Please note this study is somewhat limited due to breathing motion on several sequences. There appear to be small filling defects in the gallbladder compatible with small stones. No free fluid is seen in the visualized abdomen. There appears to be some degree of heterogeneous fatty infiltration of the liver. There are no other acute findings. IMPRESSION: Mild progressive diffuse biliary dilatation and pancreatic duct dilatation as discussed above. No evidence of choledocholithiasis. Multiple pancreatic calcifications again noted. Stricture at the ampulla of Vater cannot be totally excluded. Multiple small gallstones in the gallbladder. Electronically Signed by Mannie Castañeda MD 09/27/2018 07:44 A
== END ==
LOC: M RAD 08:59
PROVIDERS: ATTEND Internal Medicine Gastroenterology
DX: R93.3 Abnormal findings on diagnostic imaging of other parts of digestive tract (principal); K80.20 Calculus of gallbladder without cholecystitis without obstruction; K86.89 Other specified diseases of pancreas

== ENCOUNTER 2018-10-19 11:32 | Emergency (ER) | payer MEDICARE, MEDICAID ==
[~2018-10-19] VITALS: Ht 170.2 cm; Wt 62.0 kg
[~2018-10-19 11:32] MED LIST changes: -ARTI99.0 OU; +ARTIDRO2 OU
[2018-10-19] MEDS ORDERED: METH10TA2 (11:38)
[2018-10-19] MEDS ORDERED: OXYC10TA12 (11:38)
[2018-10-19] MEDS ORDERED: DOXY100C37 PO (14:53)
[2018-10-19 15:00] VITALS: BP 147/82
== END 2018-10-19 15:02 | disposition home or self-care (01) ==
LOC: M ED 11:32
DX: L03.031 Cellulitis of right toe (principal); I10 Essential (primary) hypertension; K21.9 Gastro-esophageal reflux disease without esophagitis; F41.9 Anxiety disorder, unspecified; Z79.899 Other long term (current) drug therapy; Z91.041 Radiographic dye allergy status; Z88.2 Allergy status to sulfonamides

== ENCOUNTER 2018-11-27 13:42 | Emergency (ER) | payer OTHER, MEDICARE, MEDICAID ==
[~2018-11-27] VITALS: Ht 170.2 cm; Wt 62.3 kg
[~2018-11-27 13:42] MED LIST changes: +DOXY100C37 PO; +METH10TA2; +OXYC10TA12
[2018-11-27] MEDS ORDERED: ADACEL/BOOSTRIX VACCINE (DIPHTH/PERTUSS/ACELL/TETANUS)0.5ML SYR (90715) IM ONE (14:30)
[2018-11-27] MEDS ORDERED: MORPHINE 4 MG/ML 1ML VIAL/SYRINGE (J2270) IV ONE (14:30)
--- NOTE | 2018-11-27 15:04 | REP ---
CT brain without contrast: History: Fall. Comparison study: February 08, 2017. 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 The bony calvarium is intact. No skull fractures seen. No significant scalp hematoma is appreciated. Visualized paranasal sinuses are clear. No intraorbital abnormality is seen. There is generalized cerebral atrophy. There are small vessel changes and periventricular white matter particularly the right frontal lobe. There is no evidence of new infarct. No hemorrhage, mass, extra-axial fluid collection, or midline shift is seen. Impression: Generalized volume loss and small vessel changes. No acute intracranial abnormality. Electronically Signed by Robert Vance MD 11/27/2018 02:55 P
--- NOTE | 2018-11-27 15:07 | REP ---
CT study of the cervical spine without contrast: History: Trauma. Comparison CT study cervical spine February 08, 2017. Technique: Helical scanning is acquired and overlapping 2 mm high resolution axial images were generated and reviewed at bone and soft tissue window settings. Coronal and sagittal multiplanar re-formations images are generated. CT findings: There is no evidence of cervical spine element fracture. No skull base fracture is seen. Cervical vertebral body heights are preserved. Alignment is normal. Facet joints are normally aligned bilaterally at each cervical level on multiplanar re-formations images. There is no evidence of intraspinal or paraspinal hematoma. No extra vertebral abnormality is seen. There are fairly advanced degenerative disc changes at the each cervical level most pronounced at C5-6 and C6-7 unchanged from the comparison study. There is osteoarthritis at C1-C2. Osteoarthritic facet changes are noted in the mid cervical spine mild in degree. At C6-7 there is central disc calcification and bulging and mild central canal stenosis seen. This has felt to be unchanged. There is right-sided C5-6 uncovertebral spurring unchanged. Impression: Degenerative spondylosis changes again noted. Otherwise negative CT study of the cervical spine without contrast. No fracture seen. Electronically Signed by Robert Vance MD 11/27/2018 02:58 P
--- NOTE | 2018-11-27 15:33 | REP ---
CT of the chest without IV contrast for trauma: There are no comparisons. There is no pneumothorax, hemothorax or pulmonary contusion. The thoracic aorta is unremarkable, however, the study is insensitive for dissection in the absence of IV contrast. No mediastinal hematoma is identified. Cardiac size is normal. There is no vertebral body, or sternal fracture. There is a calcified disc at the mid thoracic level compatible with advanced degenerative disc disease. And degenerate disc disease throughout the thoracic spine with no other calcified discs. No rib fractures are identified. No clavicle or scapular fractures are identified. Impression: Essentially negative CT study of the chest except for multilevel thoracic spine degenerative disc disease. Electronically Signed by Mannie Gomez MD 11/27/2018 03:25 P
--- NOTE | 2018-11-27 15:41 | REP ---
CT of the abdomen and pelvis without IV and oral contrast for trauma: Comparison is 12/31/2017. The study is performed contiguous with the chest CT this same date. The unenhanced hepatic parenchyma is homogeneous. The gallbladder is unremarkable. There are numerous pancreatic calcifications, unchanged, suggestive of prior pancreatitis. 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 There is a splenule just superior to the left renal upper pole. This is unchanged. The unenhanced kidneys and abdominal aorta are unremarkable. There is no periaortic hematoma. The adrenals are unremarkable. There are sigmoid colon diverticula. There is no evidence of diverticulitis. Pelvis: There are surgical clips adjacent to the cecum compatible with appendectomy. The bladder is unremarkable. There is no free fluid or adenopathy. There are no lumbar, sacral, pelvic or hip fractures. There is degenerative disc disease at L5 S1. Impression: There is no free fluid or pneumoperitoneum. The study is insensitive for solid organ injury in the absence of IV contrast. 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 There is a splenule above the upper pole of the left kidney, unchanged. There is no retroperitoneal hematoma. There is no bowel distension. There is an appendectomy. There is diverticulosis without diverticulitis. There is no lumbar, sacral, pelvic or hip fracture. Electronically Signed by Mannie Gomez MD 11/27/2018 03:32 P
--- NOTE | 2018-11-27 16:17 | REP ---
Right tibia-fibula four views : There is no fracture or dislocation. Mineralization and joint spaces are normal. There are no calcifications or foreign bodies. Impression: Negative right tibia-fibula. Left tibia-fibula four views : There is no fracture or dislocation. Mineralization and joint spaces are normal. There are no calcifications or foreign bodies. Impression: Negative left tibia-fibula . Electronically Signed by Mannie Gomez MD 11/27/2018 04:08 P
[2018-11-27] MEDS ORDERED: LIDOCAINE 1% MDV 20ML VIAL As Ordered ONE (16:19)
[2018-11-27 16:30] VITALS: BP 173/87
[2018-11-27] MEDS ORDERED: LIDOCAINE 1% MDV 20ML VIAL SC ONE (16:30)
--- NOTE | 2018-11-27 17:06 | REP ---
BILATERAL KNEE SERIES: A five view knee series was performed bilaterally. There is no evidence of an acute fracture, dislocation or intrinsic bone disease. There is mild lateral patellofemoral compartment narrowing bilaterally. IMPRESSION: No fracture or dislocation. Electronically Signed by Mannie Castañeda MD 11/27/2018 11:49 P
--- NOTE | 2018-11-27 17:57 | REP ---
Bilateral foot series: Eight views: History: Trauma. Findings: Four views of the right foot demonstrate diffuse osteopenia. Bones, joints, and soft tissues are otherwise unremarkable. No fracture is seen. Left foot radiographs demonstrate diffuse osteopenia as well. There is an old healed midshaft fracture of the second metatarsal on the left. No acute fracture is seen. There is mild spurring at the first MTP joint and first IP joints. Impression: Old healed second metatarsal fracture on the left. Diffuse osteopenia. Otherwise negative radiographs of the feet bilaterally. Electronically Signed by Robert Vance MD 11/27/2018 06:23 P
== END 2018-11-27 16:59 | disposition home or self-care (01) ==
LOC: M ED 13:42 → EDBD 13:42 → M ED 16:59
DX: S81.811A Laceration without foreign body, right lower leg, initial encounter (principal); S80.10XA Contusion of unspecified lower leg, initial encounter; V29.40XA Motorcycle driver injured in collision with unspecified motor vehicles in traffic accident, initial encounter; Y92.410 Unspecified street and highway as the place of occurrence of the external cause; R07.82 Intercostal pain; K57.30 Diverticulosis of large intestine without perforation or abscess without bleeding; M85.80 Other specified disorders of bone density and structure, unspecified site; Z88.2 Allergy status to sulfonamides; Z91.041 Radiographic dye allergy status; Z79.899 Other long term (current) drug therapy
CPT/HCPCS: 12002; 70450; 71250; 72125; 73564; 73590; 73630; 74176; 90471; 90715; 93041; 94760; 96374; 99285; J2270

== ENCOUNTER 2018-12-14 10:44 | Emergency (ER) | payer OTHER, MEDICARE ==
[~2018-12-14] VITALS: Ht 170.2 cm; Wt 58.0 kg
[2018-12-14] MEDS ORDERED: NS 1,000 ML IV ONE (11:45)
[2018-12-14 12:24] LABS: HEMATOCRIT 32.3 % (42.0-52.0); HEMOGLOBIN 11.4 g/dl (13.5-17.5); MEAN CORPUSCULAR HEMOGLOBIN 36.7 pg (27.0-33.0); MEAN CORPUSCULAR HGB CONC 35.3 g/dl (32.0-36.5); MEAN CORPUSCULAR VOLUME 103.9 fl (80.0-96.0); PLATELET COUNT, AUTOMATED 155 10^3/uL (150-450); RED BLOOD COUNT 3.11 10^6/uL (4.30-6.10); WHITE BLOOD COUNT 5.5 10^3/uL (4.0-10.0)
[2018-12-14 12:49] LABS: BLOOD UREA NITROGEN 12 MG/DL (7-18); C REACTIVE PROTEIN QUANTITATIV < 0.30 MG/DL (0.00-0.30); CALCIUM LEVEL 9.1 MG/DL (8.8-10.2); CARBON DIOXIDE LEVEL 27 MEQ/L (21-32); CHLORIDE LEVEL 104 MEQ/L (98-107); CREATININE FOR GFR 1.35 MG/DL (0.70-1.30); GLUCOSE, FASTING 100 MG/DL (70-100); POTASSIUM SERUM 4.7 MEQ/L (3.5-5.1); SODIUM LEVEL 137 MEQ/L (136-145)
[2018-12-14 13:00] LABS: ERYTHROCYTE SEDIMENTATION RATE 67 mm/hr (0-20)
[2018-12-14] MEDS ORDERED: MORPHINE 2 MG/ML 1ML VIAL (J2270) IV ONE (15:00)
[2018-12-14] MEDS ORDERED: METOCLOPRAMIDE INJ 10MG/2ML VIAL (J2765) IV ONE (15:00)
[2018-12-14] MEDS ORDERED: CEPHALEXIN 500 MG CAP PO ONE (15:30)
--- NOTE | 2018-12-14 15:42 | REP ---
ULTRASOUND RIGHT CALF SOFT TISSUES: Real-time sonographic evaluation of the right calf soft tissues performed at the sight of redness and swelling. Two adjacent complex fluid collections are seen at this location. These could represent abscesses. These measure 4.1 x 0.9 x 2.6 cm and 5.4 x 0.8 x 1.7 cm. Electronically Signed by Mannie Castañeda MD 12/16/2018 10:59 A
[2018-12-14] MEDS ORDERED: LIDOCAINE 2% MDV 20 ML VIAL SC ONE (16:45)
--- NOTE | 2018-12-14 16:55 | REP ---
HISTORY: Open wound. Assess for osseous involvement. FINDINGS: No acute fracture or destructive osseous lesion. Electronically Signed by Kahlil Mattson DO 12/14/2018 04:59 P
[2018-12-14] MEDS ORDERED: DOXY100C37 PO (17:35)
[2018-12-14 17:54] VITALS: BP 134/70
== END 2018-12-14 18:13 | disposition home or self-care (01) ==
LOC: M ED 10:44
DX: L02.411 Cutaneous abscess of right axilla (principal); L03.115 Cellulitis of right lower limb; Z79.891 Long term (current) use of opiate analgesic; Z88.1 Allergy status to other antibiotic agents; Z88.2 Allergy status to sulfonamides; Z91.041 Radiographic dye allergy status

== ENCOUNTER → 2019-07-20 | Outpatient (REF) ==
[~2019-07-20] MED LIST changes: -ARTIDRO2 OU; +POLYOPD OU
== END ==
LOC: M LAB 10:36